=== PATIENT | female | born 1940 | race Two or more races ===

== ENCOUNTER 2016-07-23 10:32 | Inpatient (IN) | payer MEDICARE, OTHER ==
[~2016-07-23] VITALS: Ht 157.5 cm; Wt 59.0 kg
[2016-07-23] MEDS ORDERED: IV NS 0.9% 1,000 ML ONE (10:55)
[2016-07-23] MEDS ORDERED: IV SET PRIMARY 1 EA INFUS.SET MC ONE (10:55)
[2016-07-23 10:58] LABS: BASOPHILS % (AUTO) 0.5 % (0.0-2.0); DIFF TOTAL % 100 %; EOSINOPHILS # (AUTO) 0.1 /CMM (0.0-0.7); EOSINOPHILS % (AUTO) 1.2 % (0.0-6.0); HEMATOCRIT 40 % (33-45); HEMOGLOBIN 13.1 g/dL (11.5-14.8); LYMPHOCYTES # (AUTO) 1.4 /CMM (0.8-4.8); MEAN CORPUSCULAR HEMOGLOBIN 29 PG (26.0-33.0); MEAN CORPUSCULAR HGB CONC 33 g/dl (31.0-36.0); MEAN CORPUSCULAR VOLUME 89 fL (82-100); MONOCYTES # (AUTO) 0.3 /CMM (0.1-1.30); MONOCYTES % (AUTO) 6.6 % (2.0-12.0); NEUTROPHILS # (AUTO) 3.5 /CMM (1.8-8.9); NEUTROPHILS % (AUTO) 65.7 % (43.0-81.0); PLATELET COUNT (AUTO) 162 /CMM (150-450); RED BLOOD CELL COUNT(AUTO) 4.49 MIL/uL (4.0-5.2); WHITE BLOOD COUNT (AUTO) 5.3 K/uL (4.3-11.0)
[2016-07-23] MEDS ORDERED: IV NS 0.9% 1,000 ML BAG IV ONE (11:00)
[2016-07-23 11:08] LABS: CALCIUM, SERUM 8.9 mg/dL (8.5-10.1); CREATININE 0.8 mg/dL (0.6-1.3)
[2016-07-23 11:11] LABS: INR 0.99 (0.87-1.13); PROTHROMBIN TIME 10.4 SECS (9.5-12.7)
[2016-07-23 11:14] LABS: ALBUMIN 3.9 g/dL (3.4-5.0); BILIRUBIN,DIRECT 0.1 mg/dL (0.0-0.2); BILIRUBIN,TOTAL 0.5 mg/dL (0.2-1.0); INDIRECT BILIRUBIN 0.4 mg/dL (0.0-1.1)
[2016-07-23] MEDS ORDERED: CT SWABBABLE VALVE TRANS SET 1 EA INFUS.SET MC ONE (11:21)
[2016-07-23] MEDS ORDERED: IOHEXOL-300 100 ML VIAL IV ONE (11:21)
[2016-07-23] MEDS ORDERED: IV NS 0.9% 250 ML IV ONE (11:21)
[2016-07-23] MEDS ORDERED: SUCR1TAB PO (12:24)
[2016-07-23] MEDS ORDERED: LEVO50TA8 PO (12:24)
[2016-07-23] MEDS ORDERED: PANTOPRAZOLE 40 MG VIAL ONE (13:29)
[2016-07-23] MEDS ORDERED: PANTOPRAZOLE 40 MG VIAL IV ONE ×2 (13:30→15:00)
[2016-07-23 13:45] VITALS: BP 145/68
[2016-07-23] MEDS ORDERED: IV NS 0.9% 1,000 ML IV PRN (14:29)
[2016-07-23] MEDS ORDERED: ZOLPIDEM TARTRATE 5 MG TABLET PO PRN (14:30)
[2016-07-23] MEDS ORDERED: MAG HYDROX/AL HYDROX/SIMETH 30 ML UDC PO PRN (14:30)
[2016-07-23] MEDS ORDERED: ACETAMINOPHEN 325 MG TABLET PO PRN (14:30)
[2016-07-23] MEDS ORDERED: HYDROCODONE/APAP 5/325MG 1 EACH TABLET PO PRN (14:30)
[2016-07-23] MEDS ORDERED: ONDANSETRON HCL/PF 4 MG/2 ML VIAL IVP PRN (14:30)
[2016-07-23] MEDS ORDERED: MAGNESIUM HYDROXIDE 30 ML UDC PO PRN (14:30)
[2016-07-23] MEDS: LEVOTHYROXINE SODIUM 50 MCG TABLET PO SCH (14:52)
[2016-07-23] MEDS ORDERED: Z GUARD REMEDY 2 OZ OINT TP PRN (14:53)
[2016-07-23] MEDS ORDERED: IV SET PRIMARY PUMP SET 1 EA INFUS.SET MC ONE (14:59)
[2016-07-23 16:00] VITALS: BP 144/70
[2016-07-23] MEDS: SUCRALFATE 1 G TABLET PO SCH (16:33)
[2016-07-23] MEDS ORDERED: PEG 3350/NA SULF,BICARB,CL/KCL 4,000 ML BOTTLE PO ONE (20:00)
[2016-07-23 20:19] VITALS: BP 148/73
[2016-07-23] MEDS ORDERED: MAGNESIUM CITRATE 296 ML BOTTLE PO ONE (22:30)
[2016-07-23] MEDS ORDERED: BISACODYL (5 MG) 5 MG TABLET.DR PO ONE (22:30)
[2016-07-23] MEDS ORDERED: MAGNESIUM CITRATE 296 ML BOTTLE ONE (23:05)
[2016-07-23] MEDS ORDERED: BISACODYL (5 MG) 5 MG TABLET.DR ONE (23:05)
[2016-07-23 23:59] VITALS: BP 117/66
[2016-07-24] VITALS: BP 117/66
[2016-07-24 05:17] VITALS: BP 98/53
[2016-07-24 06:34] VITALS: BP 116/50
[2016-07-24] MEDS ORDERED: PANTOPRAZOLE 40 MG TABLET.DR PO SCH (07:30)
[2016-07-24 08:00] VITALS: BP 116/50
[2016-07-24 09:06] LABS: BASOPHILS % (AUTO) 0.3 % (0.0-2.0); DIFF TOTAL % 100 %; EOSINOPHILS # (AUTO) 0.1 /CMM (0.0-0.7); EOSINOPHILS % (AUTO) 1.7 % (0.0-6.0); HEMATOCRIT 37 % (33-45); HEMOGLOBIN 11.9 g/dL (11.5-14.8); LYMPHOCYTES # (AUTO) 1.3 /CMM (0.8-4.8); LYMPHOCYTES % (AUTO) 26.3 % (20.0-44.0); MEAN CORPUSCULAR HEMOGLOBIN 29 PG (26.0-33.0); MEAN CORPUSCULAR HGB CONC 33 g/dl (31.0-36.0); MEAN CORPUSCULAR VOLUME 90 fL (82-100); MONOCYTES # (AUTO) 0.4 /CMM (0.1-1.30); MONOCYTES % (AUTO) 7.4 % (2.0-12.0); NEUTROPHILS # (AUTO) 3.3 /CMM (1.8-8.9); NEUTROPHILS % (AUTO) 64.3 % (43.0-81.0); PLATELET COUNT (AUTO) 143 /CMM (150-450); RED BLOOD CELL COUNT(AUTO) 4.09 MIL/uL (4.0-5.2); WHITE BLOOD COUNT (AUTO) 5.1 K/uL (4.3-11.0)
[2016-07-24 10:23] LABS: POTASSIUM 3.9 mmol/L (3.5-5.1)
[2016-07-24 10:24] LABS: BILIRUBIN,TOTAL 0.4 mg/dL (0.2-1.0); CALCIUM, SERUM 8.5 mg/dL (8.5-10.1); CREATININE 0.6 mg/dL (0.6-1.3)
[2016-07-24 10:25] LABS: ALBUMIN 3.4 g/dL (3.4-5.0); TOTAL PROTEIN, SERUM 7.1 g/dL (6.4-8.2)
[2016-07-24] MEDS: SUCRALFATE 1 G TABLET PO SCH (11:08)
[2016-07-24] MEDS: LEVOTHYROXINE SODIUM 50 MCG TABLET PO SCH (11:08)
== END 2016-07-24 14:02 | disposition home or self-care (01) | DRG 379 ==
LOC: ER 10:37 → TELE 13:03 → MED 07-24 10:06
PROVIDERS: ADMIT Internal Medicine; ATTEND Internal Medicine
PROC: 0DJD8ZZ Inspection of Lower Intestinal Tract, Via Natural or Artificial Opening Endoscopic (ICD-10-PCS; 2016-07-24)
PROC: 0DB48ZX Excision of Esophagogastric Junction, Via Natural or Artificial Opening Endoscopic, Diagnostic (ICD-10-PCS; principal; 2016-07-24 10:07)
PROC: 0DB68ZX Excision of Stomach, Via Natural or Artificial Opening Endoscopic, Diagnostic (ICD-10-PCS; 2016-07-24 10:07)
DX: K29.01 Acute gastritis with bleeding (principal); K59.00 Constipation, unspecified; E03.9 Hypothyroidism, unspecified; E05.90 Thyrotoxicosis, unspecified without thyrotoxic crisis or storm; K21.9 Gastro-esophageal reflux disease without esophagitis; K57.30 Diverticulosis of large intestine without perforation or abscess without bleeding; K64.1 Second degree hemorrhoids; Z86.010 Personal history of colon polyps
CPT/HCPCS: 36415; 80048-TC; 80053-TC; 80061-TC; 80076-TC; 82272-TC; 83735-TC; 84100-TC; 84484-TC; 85025-TC; 85730-TC; 86850-TC; 87081-TC; 88305-TC; 88313-TC; 88342; A4606; C9113; J7030; J7050; Q9967; Z7610

== ENCOUNTER 2018-04-05 11:53 | Emergency (ER) | payer MEDICARE, OTHER ==
[~2018-04-05] VITALS: Ht 154.9 cm; Wt 64.0 kg
[~2018-04-05 11:53] MED LIST: LEVO50TA8 PO; SUCR1TAB PO
--- NOTE | 2018-04-05 12:08 | NUR ---
78 Y/O FEMALE PLACED IN BED 2 C/O COUGH WITH PHLEGM. ALSO C/O FEVER. LUNGS CLEAR.
[2018-04-05] MEDS ORDERED: LEVO25TA7 PO (12:11)
[2018-04-05 13:23] VITALS: BP 125/60
== END 2018-04-05 13:24 | disposition home or self-care (01) ==
LOC: ER 11:56
DX: J06.9 Acute upper respiratory infection, unspecified (principal); E03.9 Hypothyroidism, unspecified; Z88.1 Allergy status to other antibiotic agents
CPT/HCPCS: 71045-TC; A4606; Z7610

== ENCOUNTER 2021-02-02 18:16 | Emergency (ER) | payer MEDICARE, OTHER ==
[~2021-02-02] VITALS: Ht 157.5 cm; Wt 65.8 kg
[~2021-02-02 18:16] MED LIST changes: +LEVO25TA7 PO
--- NOTE | 2021-02-02 18:32 | NUR ---
TO ER BED 1, C/O LOWER ABDOMINAL PAIN SINCE THIS MORNING, ATTACHED TO MONITOR, SEEN BY
--- NOTE | 2021-02-02 18:35 | NUR ---
SALINE LOCK ESTABLISHED, BLOOD DRAWN AND PICKED UP BY LAB
--- NOTE | 2021-02-02 18:40 | NUR ---
URINE COLLECTED AND SENT TO LAB
[2021-02-02] MEDS ORDERED: ASPI-1420 PO (18:45)
[2021-02-02] MEDS ORDERED: APIX2.5T PO (18:45)
[2021-02-02] MEDS ORDERED: METO25TA4 PO (18:45)
[2021-02-02 18:52] LABS: BASOPHILS # (AUTO) 0.1 K/uL (0.0-0.2); BASOPHILS % (AUTO) 0.8 % (0.0-2.0); EOSINOPHILS % (AUTO) 2.4 % (0.0-6.0); HEMATOCRIT 36 % (33-45); LYMPHOCYTES # (AUTO) 1.1 K/uL (0.8-4.8); LYMPHOCYTES % (AUTO) 17.2 % (20.0-44.0); MEAN CORPUSCULAR HGB CONC 33 g/dl (31.0-36.0); MEAN CORPUSCULAR VOLUME 92 fL (82-100); MONOCYTES # (AUTO) 0.5 K/uL (0.1-1.30); MONOCYTES % (AUTO) 7.3 % (2.0-12.0); NEUTROPHILS # (AUTO) 4.5 K/uL (1.8-8.9); NEUTROPHILS % (AUTO) 72.3 % (43.0-81.0); PLATELET COUNT (AUTO) 137 K/uL (150-450); WHITE BLOOD COUNT (AUTO) 6.3 K/uL (4.3-11.0)
[2021-02-02] MEDS ORDERED: KETOROLAC TROMETHAMINE 15 MG/ML VIAL ONE (18:54)
[2021-02-02 18:59] LABS: BILIRUBIN,URINE Negative (NEGATIVE); COLOR,URINE AMBER (YELLOW); LEUKOCYTE ESTERASE ,URINE Small (NEGATIVE); NITRITE, URINE Negative (NEGATIVE); PROTEIN,URINE 100 mg/dl (NEGATIVE); UGLUCOSE Negative (NEGATIVE); UROBILINOGEN,URINE 0.2 EU/dL (0.2)
[2021-02-02 19:00] LABS: BACTERIA,URINE 1+ /HPF (None Seen); RBC,URINE 21-50 /HPF (0-2); SQUAMOUS EPITHELIAL CELL,UR Few /HPF (None Seen)
[2021-02-02] MEDS ORDERED: KETOROLAC TROMETHAMINE INJ 30 MG/ML VIAL IV ONE (19:00)
[2021-02-02] MEDS ORDERED: IV NS 0.9% 1,000 ML BAG IV ONE (19:00)
[2021-02-02 19:08] LABS: ALBUMIN 3.7 g/dL (3.4-5.0); BILIRUBIN,DIRECT 0.1 mg/dL (0.0-0.2); BILIRUBIN,TOTAL 0.4 mg/dL (0.2-1.0); CALCIUM, SERUM 8.7 mg/dL (8.5-10.1); CREATININE 0.8 mg/dL (0.6-1.3); POTASSIUM 4.1 mmol/L (3.5-5.1); TOTAL PROTEIN, SERUM 7.7 g/dL (6.4-8.2)
[2021-02-02] MEDS ORDERED: CEFTRIAXONE 1GM BAG (ER ONLY) 50 ML IV ONE (19:16)
--- NOTE | 2021-02-02 19:17 | NUR ---
taken to radiology
--- NOTE | 2021-02-02 19:20 | NUR ---
Retrurned from ct
--- NOTE | 2021-02-02 19:22 | NUR ---
GAVE REPORT TO JANUARY LUNA RN
[2021-02-02] MEDS ORDERED: CEFTRIAXONE 1GM BAG (ER ONLY) 1 GM/50 ML PIGGYBACK IV ONE (19:30)
--- NOTE | 2021-02-02 20:08 | NUR ---
called [facility] to have images read
[2021-02-02] MEDS ORDERED: CEPH500C2 PO (20:18)
--- NOTE | 2021-02-02 20:34 | NUR ---
Patient discharged to home in stable condition. Written and verbal after care instructions given. Patient verbalizes understanding of instruction. IV removed. Catheter intact and site benign. Pressure and 4x4 applied to site. No bleeding noted.Pt ambulatory with a steady gait
[2021-02-02 20:54] VITALS: BP 148/89
== END 2021-02-02 20:34 | disposition home or self-care (01) ==
LOC: ER 18:21
DX: N39.0 Urinary tract infection, site not specified (principal); R31.9 Hematuria, unspecified; E03.9 Hypothyroidism, unspecified; I48.91 Unspecified atrial fibrillation; Z87.442 Personal history of urinary calculi; Z88.1 Allergy status to other antibiotic agents; Z79.82 Long term (current) use of aspirin; Z79.899 Other long term (current) drug therapy
CPT/HCPCS: 36415; 74176; 80048; 80076; 81001; 85025; 87086; 93005; 96365; 96375; 99285; J0696; J1885; J7030; 87186-TC

== ENCOUNTER 2021-11-16 10:32 | Emergency (ER) | payer MEDICARE, OTHER ==
[~2021-11-16] VITALS: Ht 154.9 cm; Wt 65.3 kg
[~2021-11-16 10:32] MED LIST changes: +APIX2.5T PO; +ASPI-1420 PO; +CEPH500C2 PO; -LEVO50TA8 PO; +METO25TA4 PO; -SUCR1TAB PO
--- NOTE | 2021-11-16 11:19 | NUR ---
PT BIBS ACCOMPANIED BY FRIEND WITH C/O CHEST PALPITATIONS AND SOB X 1HR. PT REPORTS DIFFICULTY GASPING FOR AIR, BILATERAL LEG WEAKNESS, AND DIAPHORETIC. DENIES CHEST PAIN, N/V/D, FEVER, OR CHILLS. PMH AFIB. PT IS A&OX4, NAD, VS CHARTED, RR EVEN AND UNLABORED. FRIEND IS AT BEDSIDE.
[2021-11-16 11:39] LABS: CALCIUM, SERUM 8.4 mg/dL (8.5-10.1); CARBON DIOXIDE 30 mmol/L (21-32); CHLORIDE 101 mmol/L (98-107); CREATININE 0.9 mg/dL (0.6-1.3); GLUCOSE 174 mg/dL (74-106); POTASSIUM 4.7 mmol/L (3.5-5.1); SODIUM SERUM 136 mmol/L (136-145); UREA NITROGEN, BLOOD 12 mg/dL (7-18)
[2021-11-16 12:33] LABS: BASOPHILS % (AUTO) 0.2 % (0.0-2.0); EOSINOPHILS % (AUTO) 0.5 % (0.0-6.0); HEMATOCRIT 36 % (33-45); HEMOGLOBIN 11.8 g/dL (11.5-14.8); LYMPHOCYTES # (AUTO) 0.6 K/uL (0.8-4.8); LYMPHOCYTES % (AUTO) 11.4 % (20.0-44.0); MEAN CORPUSCULAR HGB CONC 33 g/dl (31.0-36.0); MEAN CORPUSCULAR VOLUME 92 fL (82-100); MONOCYTES # (AUTO) 0.4 K/uL (0.1-1.30); MONOCYTES % (AUTO) 7.2 % (2.0-12.0); NEUTROPHILS # (AUTO) 4.3 K/uL (1.8-8.9); NEUTROPHILS % (AUTO) 80.7 % (43.0-81.0); PLATELET COUNT (AUTO) 139 K/uL (150-450); RED BLOOD CELL COUNT(AUTO) 3.92 MIL/uL (4.0-5.2); WHITE BLOOD COUNT (AUTO) 5.4 K/uL (4.3-11.0)
[2021-11-16] MEDS: METOPROLOL TARTRATE INJ 5 MG/5 ML AMPUL IVP PRN ×10 (13:33→14:28)
--- NOTE | 2021-11-16 14:03 | NUR ---
DC 20G IV ON RIGHT AC, PLACED 18G IV ON LEFT AC.
--- NOTE | 2021-11-16 14:13 | NUR ---
PT OFF UNIT TO CTA.
[2021-11-16] MEDS ORDERED: IOHEXOL-350 100 ML VIAL IV ONE (14:19)
[2021-11-16] MEDS ORDERED: IV NS 0.9% 250 ML IV ONE (14:19)
[2021-11-16] MEDS ORDERED: NITROGLYCERIN 0.4 MG/TAB BOTTLE ONE (14:19)
[2021-11-16] MEDS ORDERED: METOPROLOL TARTRATE INJ 5 MG/5 ML AMPUL ONE ×3 (14:19→15:00)
[2021-11-16] MEDS ORDERED: CT SWABBABLE VALVE TRANS SET 1 EA INFUS.SET MC ONE (14:19)
[2021-11-16] MEDS ORDERED: ONDANSETRON HCL/PF 4 MG/2 ML VIAL IVP PRN (14:30)
[2021-11-16] MEDS ORDERED: ACETAMINOPHEN 325 MG TABLET PO PRN (14:30)
[2021-11-16] MEDS ORDERED: MAG HYDROX/AL HYDROX/SIMETH 30 ML UDC PO PRN (14:30)
[2021-11-16] MEDS ORDERED: NITROGLYCERIN 0.4 MG/TAB BOTTLE SL PRN (14:30)
--- NOTE | 2021-11-16 15:40 | NUR ---
PT BACK FROM CT.
--- NOTE | 2021-11-16 15:46 | NUR ---
COVID SWAB COLLECTED AND SENT TO LAB.
[2021-11-16 16:57] LABS: THYROID STIMULATING HORMONE 0.474 uIU/mL (0.358-3.74)
[2021-11-16] MEDS ORDERED: Z GUARD REMEDY 4 OZ OINT TP PRN (17:00)
--- NOTE | 2021-11-16 17:46 | NUR ---
Room 311-2
--- NOTE | 2021-11-16 19:01 | NUR ---
PT IS LEAVING AMA. EXPLAINED TO PT THE RISKS FOR LEAVING AMA, PT, DAUGHTER AND SON-IN-LAW VERBALIZED UNDERSTANDING. WRIST BAND AND IV CATHETER REMOVED. PT IS A&OX4, NAD, VSS, RESPIRATION EVEN AND UNLABORED. PT WALKED OUT OF ED WITH STEADY GAIT ALONG WITH ALL PERSONAL BELONGINGS ACCOMPANIED BY DAUGHTER AND SON-IN-LAW.
[2021-11-16 19:07] VITALS: BP 116/64
[2021-11-16] MEDS ORDERED: MAGNESIUM HYDROXIDE 30 ML UDC PO PRN (22:00)
[2021-11-16] MEDS ORDERED: ZOLPIDEM TARTRATE 5 MG TABLET PO PRN (22:00)
[2021-11-17] MEDS ORDERED: LEVOTHYROXINE SODIUM 75 MCG TABLET PO SCH (07:30)
[2021-11-17] MEDS ORDERED: APIXABAN 5 MG TABLET PO SCH (09:00)
== END 2021-11-16 19:08 | disposition left against medical advice (07) ==
LOC: ER 10:36 → UNDOADMIN 17:59 → TELE 17:59
DX: R06.09 Other forms of dyspnea (principal); R07.9 Chest pain, unspecified; I48.20 Chronic atrial fibrillation, unspecified; Z20.822 Contact with and (suspected) exposure to COVID-19; Z79.01 Long term (current) use of anticoagulants; E03.9 Hypothyroidism, unspecified; Z79.890 Hormone replacement therapy; Z53.29 Procedure and treatment not carried out because of patient's decision for other reasons; R73.9 Hyperglycemia, unspecified; Z79.82 Long term (current) use of aspirin
CPT/HCPCS: 36415; 71045; 75574; 80048; 84439; 84443; 84484 ×3; 85025; 87426; 93005; 93307; 96374; 96376; 99285; J3490 ×3; J7050; Q9967; C9803; G0378